=== PATIENT | female | born 1985 | race Caucasian/White ===

== ENCOUNTER 2018-12-07 07:03 | Inpatient (IN) | payer OTHER ==
[2018-12-02 09:23] LABS: BASOPHILS % 0.4 % (0.0-1.0); EOSINOPHILS # (AUTO) 0.2 (0.0-0.4); EOSINOPHILS % 1.8 % (0.0-6.0); HEMATOCRIT 40.3 % (34.2-44.1); HEMOGLOBIN 12.9 g/dL (12.0-16.0); LYMPHOCYTES # (AUTO) 1.4 (1.0-3.2); LYMPHOCYTES % 13.9 % (18.0-39.1); MEAN CORPUSCULAR VOLUME 96.9 fL (81-99); MONOCYTES # (AUTO) 0.8 (0.2-0.8); MONOCYTES % 8.3 % (4.4-11.3); NEUTROPHILS # (AUTO) 7.6 (2.1-6.9); NEUTROPHILS % 75.1 % (38.7-80.0); PLATELET COUNT 429 x10e3/uL (140-360); RED BLOOD COUNT 4.16 x10e6/uL (3.6-5.1); RED CELL DISTRIBUTION WIDTH 14.1 % (11.7-14.4)
[~2018-12-07] VITALS: Ht 160 cm; Wt 117.9 kg
[~2018-12-07 07:03] MED LIST: ACETAMINOPHEN 1000 MG/100 ML 100 ML IV ONE; FLUOXETINE HCL20 M1 PO; LIDOCAINE HCL (LTA) 4 ML SOLN ONE; MONTELUKAST SOD10 MG PO; MULTI-VITAMIN1 EACH PO; SCOPOLAMINE 1.5 MG PATCH ONE
--- OUTSIDE RECORDS SUMMARY | 2018-12-07 07:06 | XMS REPORT | Clinical Summary ---
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 Last Filed Vital Signs Not on file Plan of Treatment Health Maintenance Due Date Last Done Comments CERVICAL CANCER SCREENING 2004 INFLUENZA VACCINE 04/15/2018 Procedures Comments Procedure Name Priority Date/Time Associated Diagnosis WELLNESS EVENT QFT Routine 04/27/2018 Routine medical exam 7:46 AM CDT after 12/06/2017 Results * Wellness event QFT (04/27/2018 7:46 AM CDT) Quantiferon TB gold plus Negative Negative [facility] [[email or web address] Comment: Interpretive Data: Quantiferon TB Gold Plus Interferon gamma release is measured for specimens from each of the four collection tubes. A qualitative result (Negative, Positive, or Indeterminate) is based on interpretation of the four values, NIL, MITOGEN minus NIL (MITOGEN-NIL), TB1 minus NIL (TB1-NIL), and TB2 minus NIL (TB2-NIL). The NIL value represents nonspecific reactivity produced by the patient specimen. The MITOGEN-NIL value serves as the positive control for the patient specimen, demonstrating successful lymphocyte activity. The TB1-NIL tube specifically detects CD4+ lymphocyte reactivity, specifically stimulated by the TB1 antigens. The TB2-NIL tube detects both CD4+ and CD8+ lymphocyte reactivity, stimulated by TB2 antigens. An overall Negative result does not completely rule out TB infection. A false-positive result in the absence of other clinical evidence of TB infection is not uncommon. Refer to: Updated Guidelines for Using Interferon Gamma Release Assays to Detect Mycobacterium tuberculosis Infection --- [place], 2010 (http://www.cdc.gov/mmwr/previ ew/mmwrhtml/hb3281v4.htm), for more information concerning test performance in low-prevalence populations and use in occupational screening. Quantiferon plus TB1 0.00 0.00 - 0.34 IU/mL [facility] minus NIL Quantiferon plus TB2 0.00 0.00 - 0.34 IU/mL [facility] minus NIL Quantiferon mitogen minus >10.00 IU/mL [facility] NIL Quantiferon NIL 0.03 IU/mL [facility] Comment: Performed by [facility], [address] [place] [address] [email or web address], Navin Najera MD - Lab. Director Specimen Serum Performing Organization Address City/State/[facility] Phone Number [facility] [address] [place] [address] after 12/06/2017 Insurance Payer Benefit Subscriber ID Type Phone Address Plan / Group CIGNA CIGNA OPEN xxxxxxxxxxx HMO ACCESS/NET WORK Advance Directives Patient has advance care planning documents on file. For more information, heladio kasper contact: Monster Waterman [address] [place] [address]
--- OUTSIDE RECORDS SUMMARY | 2018-12-07 07:06 | XMS REPORT ---
Author Author [facility] Address Unknown Phone Unavailable Care Team Providers Care Top Ironer Name Role Phone Unavailable Unavailable Payers Payer Name Policy Type Policy Number Effective Date Expiration Date Problems This patient has no known problems. Allergies, Adverse Reactions, Alerts Allergy Name Allergy Type Status Severity Reaction(s) Onset Date Inactive Date Treating Clinician Comments Iodinated Contrast Media - IV Dye DA Active U 2014-04-28 00:00:00 soap DA Active U 2014-04-28 00:00:00 povidone-iodine DA Active U 2014-04-28 00:00:00 SHRIMP DA Active U 2014-04-27 00:00:00 SPINACH DA Active U 2014-04-27 00:00:00 Medications This patient has no known medications.
[2018-12-07] MEDS ORDERED: CEFAZOLIN SOD 2 GM/D5W 50ML 50 ML IV ONE (07:15)
[2018-12-07] MEDS ORDERED: BUPIVACAINE 0.25% 30ML SDV INJ ONE (07:17)
[2018-12-07] MEDS ORDERED: SCOPOLAMINE 1.5 MG PATCH TOP SCH (11:00)
[2018-12-07] MEDS ORDERED: HYDROMORPHONE 2MG/ML 2 MG/ML ML ONE (11:30)
--- OUTSIDE RECORDS SUMMARY | 2018-12-07 11:45 | XMS REPORT | Clinical Summary ---
Author Author [facility] Address Unknown Phone Unavailable Care Team Providers Care Virtual Office Assistant Name Role Phone Asked, No Pcp PCP [...] CDT) Quantiferon TB gold plus Negative Negative [facility] Comment: Interpretive Data: Quantiferon TB Gold [...] tuberculosis Infection --- [place], 2010 (http://www.cdc.gov/mmwr/previ ew/mmwrhtml/iq2968m4.htm), for more information concerning test performance in low-prevalence populations and use in occupational screening. Quantiferon plus TB1 0.00 0.00 - 0.34 IU/mL [facility] minus NIL Quantiferon plus TB2 0.00 0.00 - 0.34 IU/mL [facility] minus NIL Quantiferon mitogen minus >10.00 IU/mL [facility] NIL Quantiferon NIL 0.03 IU/mL [facility] Comment: Performed by [facility], [address] [place] [address] [email or web address], Navin Najera MD - Lab. Director Specimen Serum Performing Organization Address City/State/[facility] Phone Number [facility] [address] [place] [address] after 12/06/2017 Insurance Payer Benefit Subscriber ID Type Phone Address Plan / Group CIGNA CIGNA OPEN xxxxxxxxxxx HMO ACCESS/NET WORK Advance Directives Patient has advance care planning documents on file. For more information, heladio kasper contact: Monster Waterman [address] [place] [address]
--- NOTE | 2018-12-07 12:30 | NUR ---
PT AMBULATED TO RESTROOM WITH STAND BY ASSISTANCE AND VOIDED AT THIS TIME.
[2018-12-07 12:34] VITALS: BP 133/65
[2018-12-07] MEDS ORDERED: HYDROMORPHONE 1MG/1ML INJ IV PRN (13:00)
[2018-12-07] MEDS: HYDROMORPHONE 2MG/ML 2 MG/ML ML IV PRN ×2 (13:09→17:45)
[2018-12-07] MEDS: LACTATED RINGER'S 1,000 ML IV SCH ×2 (13:17→22:27)
--- NOTE | 2018-12-07 14:03 | NUR ---
PT SITTING UP IN CHAIR AT THIS TIME.
[2018-12-07 14:13] VITALS: BP 133/65
--- NOTE | 2018-12-07 15:27 | Operative Report ---
DATE OF PROCEDURE: 12/07/2018 SURGEON: Gibson Angeles MD PREOPERATIVE DIAGNOSIS: Morbid obesity, BMI 45. POSTOPERATIVE DIAGNOSIS: Morbid obesity, BMI 45. PREOPERATIVE INDICATION: Treat disease, prevent complications related to comorbid conditions of obesity. PROCEDURE: Laparoscopic Ash-en-Y gastric bypass (150 cm antecolic, antegastric Ash limb) ANESTHESIA: General. WAREHOUSE STOCK CLERK: Matthew Smith (needed due to complexity of case). FLUIDS: 1600 mL of crystalloid. ESTIMATED BLOOD LOSS: 150 mL. DRAINS: None. COMPLICATIONS: None. SPECIMENS: None. GRAFTS: None. FINDINGS: 1. Normal upper GI anatomy. 2. Negative intraoperative EGD leak test. PROCEDURE IN DETAIL: The patient was brought to the operating room and was intubated under general endotracheal anesthesia. She was sterilely prepped and draped in the usual fashion and preprocedure pause was performed identifying the patient, use of perioperative antibiotics, intended procedure and staff surgeon. Access was gained through a 5 mm left subcostal incision and 4 additional trocars were placed in the standard position. Liver retractor was placed. I incised the gastrohepatic ligament toward the lesser curvature of the stomach and ligated the descending branches in the left gastric vessels. Using [place] LigaSure device, there was bleeder coming off this, which was ligated with 2-0 Surgidac suture. I then constructed gastric pouch with additional firing 90-degree angle using a 60 mm purple load MedNewsen stapling device. I then applied 3 more staple loads to make this pouch about 20 mL in volume. I then oversew the proximal staple line with 2-0 Surgidac suture in imbricating fashion. I measured 50 cm distal to the ligament of Treitz and divided the bowel with paiz load staple load and ligated the mesentery down to the base using the harmonic scalpel. I then measured 150 cm distal to this for a Ash limb. I then completed end-to-side staple anastomosis with a paiz load stapling device and stapled off the common enterotomy to former jejunojejunostomy. I then oversew the mesenteric defect with 2-0 Surgidac suture. Imbricating sutures were placed at either end-to-end anastomosis to decrease tension in the anastomosis. I then split the omentum using [place] LigaSure device. The Ash limb was brought up in posterior layer with 2-0 Surgidac suture was done in imbricating fashion to decrease tension in the anastomosis, I then did a linear anastomosis with purple load Covidien stapling device. The common enterotomy site was oversewn with 2-0 Polysorb suture beginning on the either end of the anastomosis and tying this in the middle over an adult-size endoscope used as a bougie. I then oversewn this anastomosis with 2-0 Surgidac suture in imbricating fashion. We did a leak test and no leaks were identified. Kirkland defect between the transverse mesocolon and the Ash limb. Mesentry was closed with 2-0 Surgidac suture in a continuous fashion and omental patch was placed over the gastrojejunal anastomosis. The port site was closed with 0 Vicryl suture using the Prasanna-Alba technique. Hemostasis was verified. Trocars were removed. Liver retractor was removed. The abdomen was desufflated. We then closed the incision site with 4-0 Monocryl suture in subcuticular fashion, 0.25% Bupivacaine at both the preperitoneal incision sites. All surgical sponges and instrument counts were correct. The patient tolerated the procedure well. Type of wound is type 2, clean and contaminant. Gibson Angeles MD Deloris/GABRIELAL /[id number]
--- NOTE | 2018-12-07 16:15 | NUR ---
AMBULATED WITH PT IN HALLWAY. LEFT PT SITTING IN CHAIR. CALL LIGHT WITHIN REACH. INSTRUCTED TO CALL FOR ASSISTANCE.
[2018-12-07 16:31] VITALS: BP 104/56
--- NOTE | 2018-12-07 16:57 | NUR ---
AMBULATED WITH PT IN HALLWAY THEN RETURNED TO BED. PT C/O PAIN BUT DOES NOT WANT PAIN MEDICATION AT THIS TIME BECAUSE IT MAKES HER TOO DROWSY AND HER KIDS ARE ON THE WAY TO VISIT. INSTRUCTED PT SHE WILL NEED TO WALK AT LEAST ONE MORE TIME TODAY. PT VERBALIZED UNDERSTANDING. BILAT SCD'S IN PLACE. CALL LIGHT WITHIN REACH. INSTRUCTED TO CALL WHEN SHE WOULD LIKE PAIN MEDICATION. PT VERBALIZED UNDERSTANDING.
[2018-12-07] MEDS ORDERED: LIDOCAINE HCL 2% LOCAL INJ 5 ML SDV VIAL INJ ONE ×2 (17:19→19:45)
[2018-12-07] MEDS ORDERED: ROCURONIUM BROMIDE 10 MG/ML 5ML VIAL ONE ×2 (17:19→19:45)
[2018-12-07] MEDS ORDERED: SEVOFLURANE INHAL SOLN 250 ML PEN BTL ONE ×2 (17:19→19:45)
[2018-12-07] MEDS ORDERED: DEXAMETHASONE SOD PHOS INJ 4 MG/ML VIAL ONE ×2 (17:19→19:45)
[2018-12-07] MEDS ORDERED: LIDOCAINE HCL 2% JELLY 5 ML TUBE ONE (17:19)
[2018-12-07] MEDS ORDERED: ONDANSETRON HCL INJ 2MG/ML 2ML 2 MG/ML VIAL ONE ×2 (17:19→19:45)
[2018-12-07] MEDS ORDERED: PROPOFOL IV EMULSION 10 MG/ML 20 ML VIAL ONE ×2 (17:19→19:45)
[2018-12-07] MEDS ORDERED: FENTANYL CITRATE/PF 100MCG/2 ML INJ ONE (19:45)
[2018-12-07] MEDS ORDERED: MIDAZOLAM HCL 2 MG/2 ML VIAL ONE (19:45)
[2018-12-07 20:00] VITALS: BP 118/68
--- NOTE | 2018-12-07 20:00 | NUR ---
pt received. pt assessed. no ss of distress noted. no co pain at time. specialty bed noted. will cont to follow poc. call madden within reach.
--- NOTE | 2018-12-07 21:30 | NUR ---
ambulated hallway, gait steady. no distress noted.
[2018-12-08] VITALS: BP 135/73
[2018-12-08] MEDS: HYDROMORPHONE 2MG/ML 2 MG/ML ML IV PRN (00:18)
--- NOTE | 2018-12-08 00:54 | History and Physical ---
CHIEF COMPLAINT: "I am here for weight reduction surgery." HISTORY OF PRESENT ILLNESS: This is a 33-year-old white woman with a history of extreme obesity and depression. Her extreme obesity is worsening her underlying depression. Today, patient underwent successful laparoscopic Ash-en-Y gastric bypass that was performed by her bariatric surgeon, namely Dr. Gibson Angeles. The patient tolerated this procedure well. The patient currently voiced no complaints. The patient is eating ice chips without any difficulty. States her pain is well controlled. Blood work done on December 02, 2018, revealed a hemoglobin of 12.9 g/dL. REVIEW OF SYSTEMS: GENERAL: Weight increased steadily over the last couple of years. She has gained at least 30 pounds last year. No fever or chills. HEENT: No headaches. No vision changes. CARDIOVASCULAR/RESPIRATORY: No chest pain. No shortness of breath. No cough. ALLERGIES: IODINE. PAST MEDICAL HISTORY: Depression and sinus allergies. SURGICAL HISTORY: 1. Tonsillectomy as a child. 2. Bilateral tubal ligation. 3. Appendectomy at age 7. FAMILY HISTORY: Mother has congestive heart failure and type 2 diabetes mellitus as well as extreme obesity. SOCIAL HISTORY: This woman is , lives with her . 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 No history of tobacco use. Drinks alcohol socially. HOME MEDICINES: 1. Fluoxetine 60 mg daily. 2. Singulair 10 mg daily. 3. Multivitamin 2 a day. PHYSICAL EXAMINATION: GENERAL: She is awake and alert, oriented, in no distress, very pleasant. VITAL SIGNS: Height 5 feet and 3 inches, weight 260 pounds, and BMI is 46. Blood pressure is 104/56, pulse 72, respiratory rate 18, oxygen saturation 97% on room air, and temperature 96.6. INTEGUMENT: Skin is warm and dry. No pallor, jaundice, or diaphoresis. HEENT: Anterior sclerae. Moist mucous membranes. NECK: Supple. No evidence of jugular venous distention. CARDIOVASCULAR: Regular rate and rhythm. LUNGS: No rales. No rhonchi or wheezes. Obese, benign. The laparoscopic incisions are currently dressed. They are clean, dry, and intact. No bowel sounds are auscultated at this time. EXTREMITIES: No edema or deformity. She is wearing compression stockings to her bilateral lower legs. NEUROLOGIC: Intact. ASSESSMENT: 1. Status post laparoscopic Ash-en-Y gastric bypass. 2. Extreme obesity, BMI of 46. PLAN: 1. Follow electrolytes. 2. Follow renal function. 3. Compression stockings. 4. Enoxaparin for deep venous thrombosis prophylaxis. 5. Mobilize. 6. Incentive spirometer. Encouraged incentive spirometry to prevent atelectasis. 7. Gentle intravenous fluids. 8. Advance diet as per bariatric surgery. The patient will be discharged home soon. I spent 35 minutes in the care of this patient. MD LUPILLO Travis/NEAL /[id number] MTDD
[2018-12-08 04:00] VITALS: BP 118/71
--- NOTE | 2018-12-08 04:20 | NUR ---
pt resting. no ss of distress noted. call madden within reach.
[2018-12-08] MEDS: LACTATED RINGER'S 1,000 ML IV SCH ×2 (05:16→12:41)
[2018-12-08 06:32] LABS: BASOPHILS % 0.2 % (0.0-1.0); EOSINOPHILS % 0.1 % (0.0-6.0); HEMATOCRIT 29.7 % (34.2-44.1); HEMOGLOBIN 9.4 g/dL (12.0-16.0); LYMPHOCYTES # (AUTO) 1.5 (1.0-3.2); LYMPHOCYTES % 11.2 % (18.0-39.1); MEAN CORPUSCULAR HEMOGLOBIN 30.9 pg (28-32); MEAN CORPUSCULAR HGB CONC 31.6 g/dL (31-35); MEAN CORPUSCULAR VOLUME 97.7 fL (81-99); MONOCYTES # (AUTO) 1.2 (0.2-0.8); MONOCYTES % 9.1 % (4.4-11.3); NEUTROPHILS # (AUTO) 10.8 (2.1-6.9); NEUTROPHILS % 78.9 % (38.7-80.0); PLATELET COUNT 368 x10e3/uL (140-360); RED BLOOD COUNT 3.04 x10e6/uL (3.6-5.1); RED CELL DISTRIBUTION WIDTH 14.3 % (11.7-14.4)
[2018-12-08 06:53] LABS: ALANINE AMINOTRANSFERASE 34 IU/L (0-55); ALBUMIN 2.9 g/dL (3.5-5.0); ALBUMIN/GLOBULIN RATIO 1.1 (0.8-2.0); ALKALINE PHOSPHATASE 63 IU/L (40-150); ANION GAP 11.8 mmol/L (8-16); BLOOD UREA NITROGEN 9 mg/dL (7-26); BUN/CREATININE RATIO 11 (6-25); CALCIUM 8.6 mg/dL (8.4-10.2); CARBON DIOXIDE 26 mmol/L (22-29); CHLORIDE 101 mmol/L (98-107); CREATININE, SERUM 0.83 mg/dL (0.57-1.11); EST GLOMERULAR FILTRATION RATE > 60 ML/MIN (60-); GLUCOSE 111 mg/dL (74-118); MAGNESIUM 2.1 MG/DL (1.3-2.1); PHOSPHORUS 3.4 MG/DL (2.3-4.7); POTASSIUM 3.8 mmol/L (3.5-5.1); SODIUM 135 mmol/L (136-145)
[2018-12-08 08:13] VITALS: BP 128/60
[2018-12-08] MEDS ORDERED: HYDROCODONE/APAP 5MG-325MG TAB PO PRN ×2 (08:45)
--- NOTE | 2018-12-08 08:45 | NUR ---
ASSISTED PT TO SIT IN CHAIR AT THIS TIME. CALL LIGHT WITHIN REACH. INSTRUCTED TO CALL FOR ASSISTANCE.
[2018-12-08] MEDS ORDERED: ENOXAPARIN SOD INJ 40 MG/0.4 ML SYR SC SCH ×2 (09:00)
--- NOTE | 2018-12-08 09:58 | NUR ---
PT AMBULATING IN HALLWAY AT THIS TIME
[2018-12-08 10:01] VITALS: BP 128/60
--- NOTE | 2018-12-08 10:40 | NUR ---
Nutrition Screen Note RD Recommendation for Physician: -Advance diet as tolerated -Follow up with outpatient bariatric clinic for further monitoring Plan of Care: RD following, monitoring for tolerance and adequacy, diet education Nutrition reason for involvement: MD Consult bariatric diet education Primary Diagnose(s): s/p laparoscopic Ash-en-Y gastric bypass PMH: depression, obesity Ht: 63in Wt: 260lb BMI: 46.1kg/m2 IBW: 115lb RD Assessment: (12/08) Chart reviewed. Labs and meds reviewed. 33yo F, s/p successful laparoscopic Ash-en-Y gastric bypass on 12/07. Visited pt in the room. Pt tolerated clear liquid diet this AM. No GI complains noted. Pt denied any chewing or swallowing difficulty. Bariatric diet education was provided. All questions have been answered. Current Diet: bariatric clear liquid Malnutrition Evaluation (12/08) The patient does not meet criteria for a specified degree of malnutrition at this time. Will re-evaluate at follow-up as appropriate. Diet Education Needs Assessment: Diet education indicated, pt was agreeable with plan. Learner(s): pt Time spent: 20minutes Barriers: none Cultural/Language Modifications: No cultural/language modifications noted. Pt speaks Vincentian. Readiness: acceptance Method: explanation/ discussion, handout Topics: Bariatric diet (clear liquid, full liquid, pureed) Understanding/Compliance: good compliance expected, needs reinforcement at outpatient bariatric clinic, all questions have been answered Nutrition Care Level: low Signed: Bella Pennington, MS, RD, LD
--- NOTE | 2018-12-08 11:59 | NUR ---
PT UP TO CHAIR AWAITING LUNCH TRAY. AMBULATED TO RESTROOM. CALL LIGHT WITHIN REACH. WILL CONTINUE TO MONITOR.
[2018-12-08 12:41] VITALS: BP 140/78
--- NOTE | 2018-12-08 12:57 | NUR ---
Progress note S: No complaints O: AF, VSS Gen- no distress Abd- soft, incisions healing well A/P: POD 1, s/p Lap marya en y gastric bypass -clears, ambulate, IS, OOB to chair, d/c home today -f/u in week -post op instructions given to patient Cassia Angeles MD
--- NOTE | 2018-12-08 13:17 | NUR ---
DISCHARGE INSTRUCTIONS AND PRESCRIPTION GIVEN. PT VERBALIZED UNDERSTANDING. LEFT HAND IV D/C AND PRESSURE DRESSING APPLIED. PT AWAITING RIDE HOME.
--- NOTE | 2018-12-09 08:32 | NUR ---
Dictated DC summary: [id number]
--- NOTE | 2018-12-10 03:28 | Discharge Summary ---
ADMIT DIAGNOSIS: Extreme obesity, BMI of 46. DISCHARGE DIAGNOSES: 1. Status post laparoscopic Ash-en-Y gastric bypass. 2. Extreme obesity, BMI of 46. HOSPITAL COURSE: This is a 33-year-old white woman, who was initially admitted to [facility] with diagnosis of extreme obesity with BMI of 46. During this hospital stay, she underwent successful laparoscopic Ash-en-Y gastric bypass that was performed by her bariatric surgeon, namely Dr. Gibson Angeles. The patient's brief hospitalization was unremarkable. On day of discharge, she was tolerating a full liquid diet. CONDITION ON DISCHARGE: Stable. DISCHARGE MEDICATIONS: 1. Tylenol No. 3 one pill every 4 to 6 hours p.r.n. pain, #20 prescribed. No refills. 2. Zofran 4 mg one pill every 6 hours p.r.n. nausea and vomiting. 3. Fluoxetine 60 mg daily. 4. Singulair 10 mg daily. 5. Multivitamin 2 pills daily. FOLLOWUP INSTRUCTION: The patient is instructed to follow up with her primary care physician, myself, Dr. Fernie Brumfield on Saturday, December 15, 2018. MD LUPILLO Travis/NEAL /[id number] cc: Gibson Angeles MD
== END 2018-12-08 13:50 | disposition home or self-care (01) | DRG 621 ==
LOC: OR 07:03 → PACU V 11:38 → OBSVTOIN 11:38 → MED/SURG 12:00
PROVIDERS: ADMIT Internal Medicine; ATTEND Internal Medicine
PROC: 0D164ZA Bypass Stomach to Jejunum, Percutaneous Endoscopic Approach (ICD-10-PCS; principal; 2018-12-07 07:00)
DX: E66.01 Morbid (severe) obesity due to excess calories (principal); Z68.42 Body mass index [BMI] 45.0-49.9, adult
CPT/HCPCS: 36415; 43235; 80053; 81025; 83735; 84100; 85025; G0378; J0690; J1100; J1650; J2001; J2250; J2405; J7121